=== PATIENT | male | born 1975 | race Caucasian/White ===

== ENCOUNTER 2024-10-07 13:56 | Emergency (ER) | payer BC, SELFPAY ==
[2024-10-07 14:21] VITALS: BP 142/100; PULSE 99; O2SAT 62
[2024-10-07 14:23] VITALS: BP 142/100; PULSE 68; RESP 17; TEMP 36.6; O2SAT 98; BMI 37.3
[2024-10-07 14:27] VITALS: BP 152/91; PULSE 62; O2SAT 99
--- NOTE | 2024-10-07 14:36 | CT_ITS ---
FINAL REPORT TECHNIQUE: Thin section axial images were obtained from the lung bases to the pubic symphysis without IV contrast. Coronal reconstruction images were obtained from the axial data. Exam was performed using dose reduction technique. CLINICAL HISTORY: R flank pain FINDINGS: There are no renal or ureteral stones. There is no hydronephrosis or perinephric stranding. There is diffuse fatty infiltration of the liver. The gallbladder is surgically absent the remaining unenhanced solid abdominal organs are unremarkable. There is no evidence of small bowel obstruction. The appendix is absent. There is diverticulosis without diverticulitis there is no lymphadenopathy or ascites. There are small fat-containing inguinal hernias. No acute osseous abnormality is identified. IMPRESSION: No renal or ureteral stones. No hydronephrosis. Fatty infiltration of the liver. Reviewed, Interpreted and Dictated by Syl Coombs MD Transcribed by MELINA Navarro Authenticated and [facility]
[2024-10-07] MEDS: ACETAMINOPHEN 500MG TAB 1000 MG PO ×2 (14:58→19:11)
[2024-10-07] MEDS: KETOROLAC 30MG/ML VIAL 15 MG IV (14:58)
--- NOTE | 2024-10-07 14:58 | ED_ITS ---
Discharge Plan Disposition Patient Disposition: Still a Patient Referrals Follow up/Referrals: Simi Herndon APRN [Primary Care Provider] - See instructions Clinical Impressions Clinical Impression: Acute right flank pain Print Language Print Language: Korean Discharge ED Provider: Tala Nguyen General Adult HPI <Simi Mckeon DO - Last Filed: 10/07/24 15:01> General Chief complaint: PAIN Stated complaint: Lower back pain Time Seen by Provider: 10/07/24 14:36 Mode of Arrival: Ambulatory Source of Information: Patient Description of Symptoms (Recalled from ER Triage Doc. by RN): pt to the ED with lower back and right flank pain x 4 days. pt denies any pain or burning when urinating. History of Present Illness HPI narrative: This patient is a 48-year-old male with history of tobacco dependence presenting to the emergency department for evaluation with concern for right flank pain has been going on for about 4 days now. He states is nonradiating. No falls or injuries. No fevers, chills, cough, congestion, chest pain, shortness of breath, nausea, vomiting, change in bowel movements, or notable urinary symptoms. Nothing seems to make the pain any better or worse. Related Data Allergies Allergy/AdvReac Type Severity Reaction Status Date / Time No Known Allergies Allergy Verified 06/23/18 20:03 PFSH <Simi Mckeon DO - Last Filed: 10/07/24 15:01> PFS Disclaimer: The information contained in this section may have been updated after the patient was seen, as this information can be updated by other users. Social History Smoking Status: Current every day smoker alcohol intake: current alcohol intake frequency: 0-2 drinks per day substance use type: marijuana current occupational status: employed Travel in the last 8 weeks?: None Have you lived/traveled outside [place] in past 30 days?: No Contact w/someone who lives/traveled outside [place] past 30 days?: No Exposure to someone with infectious disease in past 14 days?: No Do you have a fever (greater than 100.4 F or 38 C)?: No Have you tested positive for COVID-19?: No Exposed to someone with COVID-19 in past 14 days?: No Do you have a sore throat?: No Do you have a cough?: No Do you have any weakness?: No Do you have any diarrhea?: No Are you experiencing any unusual bleeding?: No Do you have any muscle aches/pain?: Yes Do you have any abdominal pain?: No Are you experiencing loss of taste or smell?: No <Simi Mckeon DO - Last Filed: 10/07/24 15:01> ROS Obtained: Yes All systems reviewed & no additional complaints except as documented Physical Exam <Simi Mckeon DO - Last Filed: 10/07/24 15:01> General General appearance: alert and in no apparent distress Head Head exam: atraumatic and normocephalic Eye Eye exam: Present normal appearance, PERRL and EOMI ENT ENT exam: Present normal exam, normal oropharynx, mucous membranes moist and normal external ear exam Neck Neck exam: Present normal inspection, full ROM and trachea midline; Absent tenderness Chest Chest inspection: Present normal inspection and symmetric chest wall rise; Absent tenderness Respiratory Respiratory exam: Present normal lung sounds bilaterally; Absent respiratory distress, wheezes, stridor or accessory muscle use Cardiovascular Cardiovascular exam: Present regular rate and normal rhythm Abdominal Exam Abdominal exam: Present soft; Absent distention, tenderness or guarding Extremities Exam Extremities exam: Present normal inspection, full ROM and normal capillary refill; Absent tenderness or edema Back Exam Back exam: Present full ROM and CVA tenderness (R) Neurological Exam Neurological exam: Present alert, oriented X3, CN II-XII intact and normal gait; Absent motor sensory deficit Psychiatric Psychiatric exam: Present normal affect and normal mood Skin Skin exam: Present warm and dry Medical Decision Making <Simi Mckeon DO - Last Filed: 10/07/24 15:01> Medical Records Medical records reviewed: Yes I reviewed the patient's medical records. Screening: Per USPSTF and CDC recommendations, given the prevalence of disease in our region, it is our hospital?s policy to screen for HIV and viral Hepatitis for all patients aged 18 and over and those with ongoing risk factors. Win Inquiry Pt receiving controlled substance: No Vital Signs: 10/07/24 14:21 10/07/24 14:23 10/07/24 14:27 Temperature 97.9 F Temperature Source Oral Pulse Rate 99 H 62 Pulse Rate [Left Radial] 68 Respiratory Rate 17 Blood Pressure 142/100 H 152/91 H Blood Pressure [Right Arm] 142/100 H Blood Pressure Mean [Right Arm] 114 Blood Pressure Source Automatic Cuff Blood Pressure Source [Right Arm] Automatic Cuff Blood Pressure Position Sitting Sitting Blood Pressure Position [Right Arm] Sitting 02 Sat by Pulse Oximetry 62 L 98 99 Oxygen Delivery Method Room Air Room Air Room Air 10/07/24 16:45 10/07/24 18:12 Temperature 98.0 F Temperature Source Pulse Rate 60 Pulse Rate [Left Radial] Respiratory Rate Blood Pressure 127/87 143/96 H Blood Pressure [Right Arm] Blood Pressure Mean [Right Arm] Blood Pressure Source Automatic Cuff Blood Pressure Source [Right Arm] Blood Pressure Position Sitting Blood Pressure Position [Right Arm] 02 Sat by Pulse Oximetry 100 100 Oxygen Delivery Method Room Air Room Air Lab Data Lab results reviewed: Yes I reviewed the patient's lab results. Lab Results 10/07/24 14:29: WBC 8.8, RBC 5.32, Hgb 16.7, Hct 48.3, MCV 90.8, MCH 31.4 H, MCHC 34.6, RDW 12.8, Plt Count 289, MPV 10.1, Neut % (Auto) 58.5, Lymph % (Auto) 29.8, [place] % (Auto) 8.6, Eos % (Auto) 2.0, Baso % (Auto) 0.6, Neut # (Auto) 5.2, Lymph # (Auto) 2.6, [place] # (Auto) 0.8, Eos # (Auto) 0.2, Baso # (Auto) 0.1, S odium 134 L, Potassium 4.3, Chloride 104, Carbon Dioxide 29, Anion Gap 5.3, BUN 12, Creatinine 0.60 L, Estimated Creat Clear 251, Estimated GFR 144, Est GFR ( Amer) 174, Glucose 192 H, Calcium 9.3, Total Bilirubin 0.6, AST 51, ALT 61, Alkaline Phosphatase 89, Total Protein 6.9, Albumin 4.1, Globulin 2.8, Albumin/Globulin Ratio 1.5, Lipase 63 10/07/24 16:43: Urine Color Yellow, Urine Appearance Clear, Urine pH 6.0, Ur Specific [place] 1.025, Urine Protein Negative, Urine Glucose (UA) 1+, Urine Ketones Negative, Urine Blood Negative, Urine Nitrate Negative, Urine Bilirubin Negative, Urine Urobilinogen 0.2, Ur Leukocyte Esterase Negative, Urine RBC None, Urine WBC 3-5, Ur Squamous Epith Cells 3-5, Urine Bacteria Trace 10/07/24 14:29 10/07/24 14:29 Orders (Tests/Meds): ED MEDICATIONS Discontinued Medications Generic Name Dose Route Start Last Admin Trade Name Camilla PRN Reason Stop Dose Admin Acetaminophen 1,000 mg 10/07/24 14:37 10/07/24 14:58 Acetaminophen 500mg Tab PO 10/07/24 14:38 1,000 mg ONCE ONE Administration Lactated Ringer's 1,000 mls @ 999 mls/hr 10/07/24 14:37 10/07/24 14:59 Lactated Ringer's 1000 Ml Bag IV 10/07/24 15:37 999 mls/hr .Q1H1M ONE Administration Ketorolac Tromethamine 15 mg 10/07/24 14:37 10/07/24 14:58 Ketorolac 30mg/Ml Vial IV 10/07/24 14:38 15 mg ONCE ONE Administration Ondansetron HCl 4 mg 10/07/24 14:37 10/07/24 14:59 Ondansetron 4mg/2ml Vial IV 10/07/24 14:38 4 mg ONCE ONE Administration ORDERS Category Date Time Status CT abdomen pelvis wo con Stat Cat Scan 10/07/24 14:36 Completed Complete Blood Count Auto Diff Stat Lab 10/07/24 14:29 Completed Comprehensive Metabolic Panel Stat Lab 10/07/24 14:29 Completed Lipase Stat Lab 10/07/24 14:29 Completed UA [Urinalysis and Microscopic] Stat Lab 10/07/24 16:43 Completed Urine Culture Stat Micro 10/07/24 16:43 Received Medical Decision Narrative: In summary, this patient is a 48-year-old male presenting to the Emergency Department for evaluation of right flank pain. Differential diagnoses considered include but are not limited to ureterolithiasis, pyelonephritis, colitis, cholecystitis, musculoskeletal strain/sprain. Ruling out the most morbid conditions drove assessment. It should be noted patient's history includes tobacco dependence which is not at goal therapy. This complicates all aspects of care by increasing patient's risk for morbidity. On exam, the patient is well-appearing. He is sitting upright in no acute distress with reassuring vital signs or cardiac telemetry. He has right CVA tenderness but otherwise exam is reassuring. No numbness, tingling, saddle anesthesia or alarm findings concerning for spinal cord compression or cauda equina syndrome. No falls or traumatic injuries. Workup included CBC, CMP, lipase, urinalysis, CT abdomen pelvis without IV contrast. He was given a bolus of IV fluids as well as IV Toradol, acetaminophen, oral Zofran for symptomatic improvement. Patient care signed out to the oncoming provider, Dr. Nguyen, pending labs/urine/CT. <Tala Nguyen MD - Last Filed: 10/07/24 18:57> Vital Signs: 10/07/24 14:21 10/07/24 14:23 10/07/24 14:27 Temperature 97.9 F Temperature Source Oral Pulse Rate 99 H 62 Pulse Rate [Left Radial] 68 Respiratory Rate 17 Blood Pressure 142/100 H 152/91 H Blood Pressure [Right Arm] 142/100 H Blood Pressure Mean [Right Arm] 114 Blood Pressure Source Automatic Cuff Blood Pressure Source [Right Arm] Automatic Cuff Blood Pressure Position Sitting Sitting Blood Pressure Position [Right Arm] Sitting 02 Sat by Pulse Oximetry 62 L 98 99 Oxygen Delivery Method Room Air Room Air Room Air 10/07/24 16:45 10/07/24 18:12 Temperature 98.0 F Temperature Source Pulse Rate 60 Pulse Rate [Left Radial] Respiratory Rate Blood Pressure 127/87 143/96 H Blood Pressure [Right Arm] Blood Pressure Mean [Right Arm] Blood Pressure Source Automatic Cuff Blood Pressure Source [Right Arm] Blood Pressure Position Sitting Blood Pressure Position [Right Arm] 02 Sat by Pulse Oximetry 100 100 Oxygen Delivery Method Room Air Room Air Lab Data Lab Results 10/07/24 14:29: WBC 8.8, RBC 5.32, Hgb 16.7, Hct 48.3, MCV 90.8, MCH 31.4 H, MCHC 34.6, RDW 12.8, Plt Count 289, MPV 10.1, Neut % (Auto) 58.5, Lymph % (Auto) 29.8, [place] % (Auto) 8.6, Eos % (Auto) 2.0, Baso % (Auto) 0.6, Neut # (Auto) 5.2, Lymph # (Auto) 2.6, [place] # (Auto) 0.8, Eos # (Auto) 0.2, Baso # (Auto) 0.1, S odium 134 L, Potassium 4.3, Chloride 104, Carbon Dioxide 29, Anion Gap 5.3, BUN 12, Creatinine 0.60 L, Estimated Creat Clear 251, Estimated GFR 144, Est GFR ( Amer) 174, Glucose 192 H, Calcium 9.3, Total Bilirubin 0.6, AST 51, ALT 61, Alkaline Phosphatase 89, Total Protein 6.9, Albumin 4.1, Globulin 2.8, Albumin/Globulin Ratio 1.5, Lipase 63 10/07/24 16:43: Urine Color Yellow, Urine Appearance Clear, Urine pH 6.0, Ur Specific [place] 1.025, Urine Protein Negative, Urine Glucose (UA) 1+, Urine Ketones Negative, Urine Blood Negative, Urine Nitrate Negative, Urine Bilirubin Negative, Urine Urobilinogen 0.2, Ur Leukocyte Esterase Negative, Urine RBC None, Urine WBC 3-5, Ur Squamous Epith Cells 3-5, Urine Bacteria Trace Orders (Tests/Meds): ED MEDICATIONS Discontinued Medications Generic Name Dose Route Start Last Admin Trade Name Freq PRN Reason Stop Dose Admin Acetaminophen 1,000 mg 10/07/24 14:37 10/07/24 14:58 Acetaminophen 500mg Tab PO 10/07/24 14:38 1,000 mg ONCE ONE Administration Lactated Ringer's 1,000 mls @ 999 mls/hr 10/07/24 14:37 10/07/24 14:59 Lactated Ringer's 1000 Ml Bag IV 10/07/24 15:37 999 mls/hr .Q1H1M ONE Administration Ketorolac Tromethamine 15 mg 10/07/24 14:37 10/07/24 14:58 Ketorolac 30mg/Ml Vial IV 10/07/24 14:38 15 mg ONCE ONE Administration Ondansetron HCl 4 mg 10/07/24 14:37 10/07/24 14:59 Ondansetron 4mg/2ml Vial IV 10/07/24 14:38 4 mg ONCE ONE Administration ORDERS Category Date Time Status CT abdomen pelvis wo con Stat Cat Scan 10/07/24 14:36 Completed Complete Blood Count Auto Diff Stat Lab 10/07/24 14:29 Completed Comprehensive Metabolic Panel Stat Lab 10/07/24 14:29 Completed Lipase Stat Lab 10/07/24 14:29 Completed UA [Urinalysis and Microscopic] Stat Lab 10/07/24 16:43 Completed Urine Culture Stat Micro 10/07/24 16:43 Received Medical Decision Narrative: In summary, this patient is a 48-year-old male presenting to the Emergency Department for evaluation of right flank pain. Differential diagnoses considered include but are not limited to ureterolithiasis, pyelonephritis, colitis, cholecystitis, musculoskeletal strain/sprain. Ruling out the most morbid conditions drove assessment. It should be noted patient's history includes tobacco dependence which is not at goal therapy. This complicates all aspects of care by increasing patient's risk for morbidity. On exam, the patient is well-appearing. He is sitting upright in no acute distress with reassuring vital signs or cardiac telemetry. He has right CVA tenderness but otherwise exam is reassuring. No numbness, tingling, saddle anesthesia or alarm findings concerning for spinal cord compression or cauda equina syndrome. No falls or traumatic injuries. Workup included CBC, CMP, lipase, urinalysis, CT abdomen pelvis without IV contrast. He was given a bolus of IV fluids as well as IV Toradol, acetaminophen, oral Zofran for symptomatic improvement. Patient care signed out to the oncoming provider, Dr. Nguyen, pending labs/urine/CT. Patrick: Upon my assumption of care, pt has negative CT scan, unremarkable labs. Pending urine at this time. Urine resulted and does not represent acute cystitis and is negative for blood. Discussed possibility that patient strained a muscle at work due to the type of work he does. Patient also reports having an elevated hemoglobin A1c at his doctor's office on Friday which caused him to start stressing. We discussed symptomatic control with Robaxin, Tylenol, ibuprofen and lidocaine patches. 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 Patient advised to stay out of work for the next few days. All questions were answered, return precautions discussed and patient discharged in stable condition. Tala Nguyen MD Critical Care <Simi Mckeon, - Last Filed: 10/07/24 15:01> Critical Care Time Critical Care Time: No
[2024-10-07] MEDS: ONDANSETRON 4MG/2ML VIAL 4 MG IV (14:59)
[2024-10-07] MEDS: LACTATED RINGERS 1000ML 1,000 ML 999 ML IV (14:59)
[2024-10-07 15:09] LABS: Basophils # 0.1 K/mm3 (0-0.2); Basophils % 0.6 % (0.1-2.0); Eosinophils # 0.2 Kmm3 (0.0-0.4); Hematocrit 48.3 % (42.0-52.0); Hemoglobin 16.7 g/dL (14.1-18.0); Immature Granulocytes # 0.04 10^3uL; Immature Granulocytes % 0.5 %; Lymphocytes # 2.6 K/mm3 (0.7-4.5); Lymphocytes % 29.8 % (10-50); Mean Corpuscular HGB Conc 34.6 g/dL (31.8-35.4); Mean Corpuscular Hemoglobin 31.4 pg (27.0-31.2); Mean Corpuscular Volume 90.8 fl (80-94); Mean Platelet Volume 10.1 fl (7.4-10.4); Monocytes # 0.8 K/mm3 (0.1-1.0); Monocytes % 8.6 % (1.7-9.3); Neutrophils # 5.2 K/mm3 (1.8-7.8); Neutrophils % 58.5 % (37.0-80.0); Nucleated Red Blood Cells # 0 10^3/uL; Nucleated Red Blood Cells % 0 %; Platelet Count 289 K/mm3 (142-424); Red Blood Count 5.32 M/mm3 (4.60-6.20); Red Cell Distribution Width 12.8 % (11.5-17.5); White Blood Count 8.8 K/mm3 (4.8-10.8)
[2024-10-07 15:15] LABS: Alanine Aminotransferase 61 U/L (12-78); Albumin Level 4.1 g/dl (3.5-5.0); Albumin/Globulin Ratio 1.5 (1.1-1.8); Alkaline Phosphatase 89 U/L (38-126); Anion Gap 5.3 mEq/L (5-15); Aspartate Amino Transferase 51 U/L (17-59); Bilirubin,Total 0.6 mg/dl (0.2-1.3); Blood Urea Nitrogen 12 mg/dl (9-20); Calcium 9.3 mg/dl (8.4-10.2); Carbon Dioxide 29 mmol/L (22.0-30.0); Chloride 104 mmol/L (98-107); Creatinine Clearance Estimated 251 mL/min (50-200); Estimated Glomerular Filt Rate 144 ml/min (>60); GFR (African American) 174 ML/MIN (>60); Globulin 2.8 g/dL (1.3-3.2); Glucose 192 mg/dl (74-100); Lipase 63 U/L (23-300); Potassium 4.3 mmoL/L (3.5-5.1); Sodium 134 mmol/L (136-145); Total Protein,Serum 6.9 g/dl (6.3-8.2)
--- NOTE | 2024-10-07 16:10 | PC.NURSE ---
reminded pt that we still need a urine sample at this time
[2024-10-07 16:45] VITALS: BP 127/87; PULSE 60; O2SAT 100
[2024-10-07 16:49] LABS: Microscopic, Urine URINE MICROSCOPIC (MICROSCOPIC)
--- NOTE | 2024-10-07 17:30 | PC.NURSE ---
rounded on patient, no needs voiced at this time.
--- NOTE | 2024-10-07 18:00 | PC.NURSE ---
pt rounded on no needs at this time.
[2024-10-07 18:09] LABS: Appearance,Urine CLEAR (Clear); Bilirubin,Urine Negative (Negative); Blood, Urine Negative (Negative); Color,Urine YELLOW (Yellow); Glucose,Urine (UA) 1+ (Negative); Ketones,Urine Negative (Negative); Leukocyte Esterase,Urine Negative (Negative); Nitrate,Urine Negative (Negative); Protein,Urine Negative (Negative); Specific Gravity, Urine 1.025 (1.005-1.030); Urobilinogen,Urine 0.2 EU/dl (0.2)
[2024-10-07 18:12] VITALS: BP 143/96; TEMP 36.7; O2SAT 100
[2024-10-07 18:43] LABS: Bacteria,Urine Trace /lpf
[2024-10-07] MEDS: METHOCARBAMOL 500MG TABLET 1000 MG PO (19:11)
[2024-10-07] MEDS: IBUPROFEN 800 MG TABLET PO (19:11)
[2024-10-07] MEDS: LIDOCAINE 5% TRANSDERMAL PATCH 1 EACH TD (19:11)
[2024-10-07 19:19] VITALS: BP 144/92; PULSE 69; RESP 18; TEMP 37.1
== END 2024-10-07 19:20 | disposition home or self-care (01) ==
PROVIDERS: Emergency Medicine; Emergency Provider Student in an Organized Health Care Education/Training Program; PCP Nurse Practitioner Family
DX: R10.31 Right lower quadrant pain (principal); M54.59 Other low back pain
CPT/HCPCS: 74176; 80053; 81001; 83690; 85025; 87086; 96361; 96374; 96375; 99284; J1885; J2405; J7120